=== PATIENT | male | born 1970 | race Caucasian/White ===

== ENCOUNTER 2020-12-11 03:26 | Day surgery (SDC) | payer SELFPAY ==
[2020-12-11] VITALS (9 sets, daily range): BP systolic 101–135; BP diastolic 55–93; PULSE 77–105; RESP 15–18; TEMP 36.6; O2SAT 95–100; BMI 29.0
--- NOTE | 2020-12-11 06:22 | ED_ITS ---
HPI - Nausea/Vomiting/Diarrhea General: Chief complaint: Nausea/Vomiting/Diarrhea Stated complaint: n/v/possibly vomiting blood Time Seen by Provider: 12/11/20 05:03 History of Present Illness: HPI Narrative: Mr. Jacinto is a 50-year-old gentleman without significant past medical history presents the emergency department due to nausea and vomiting with concern over hematemesis. Symptom onset was 3 to 4 days ago and gradual. He endorses a preceding number of months of burning epigastric pain. He has vomited numerous times and has dark red blood. He has mild associated generalized malaise. He does have a history of tobaccoism but no history of bleeding disorder or history of similar episodes in the past. Overall the course of symptoms has persisted. He denies abdominal trauma or other any other specific exacerbating, alleviating, or provoking f actors that he can identify. No history of abdominal surgeries. Review of Systems General: Reports: 10 or more systems reviewed and unremarkable except in HPI and below Narrative: CONSTITUTIONAL: denies fever, fatigue, weakness EYES - denies pain, denies loss of vision EARS - denies ear issues. NOSE - denies congestion or rhinorrhea. THROAT - denies sore throat or difficulty swallowing. CARDIOVASCULAR - denies chest pain and palpitations RESPIRATORY - denies shortness of breath and cough GASTROINTESTINAL - denies abdominal pain, see HPI. No dark tarry stools. GENITOURINARY - denies dysuria or urinary frequency MUSCULOSKELETAL- denies deformity or pain SKIN - denies rashes or new changed skin lesions NEUROLOGIC - denies focal weakness or sensory changes HEMATOLOGIC/LYMPHATIC - denies easy bruising or lymphadenopathy. [facility] ED PFSH: Social History (Updated 12/11/20 @ 07:35 by Matt Ng MD) Smoking and tobacco status: current every day smoker Physical Exam Narrative: EXAM NARRATIVE: GENERAL/CONSTITUTIONAL - well-appearing. No acute distress. Eyes - PERRL, no conjunctival injection ENMT - Atraumatic external nose and ears. Moist mucous membranes NECK - supple. trachea midline CARDIOVASCULAR - regular rate and rhythm. Peripheral pulses 2+ and equal RESPIRATORY -clear to auscultation bilaterally. No retractions or accessory muscle use. ABDOMEN/GI - Nontender/Nondistended. No tenderness to percussion or evidence of peritonitis MSK - Extremities without obvious deformity or tenderness to palpation SKIN - Warm, Dry NEURO - alert and appropriately oriented. strength and sensation intact. Moves all extremities equally. PSYCH - Appropriate mood and affect Course ED course: - Patient was seen and evaluated by me at bedside. Patient does have basin with small amounts of brown emesis - Patient placed on cardiac monitors, IV access obtained - Initial evaluation notable for no acute distress, nontoxic appearance. No significant abdominal pain. - Labs notable for no leukocytosis, normal hemoglobin. No significant abnormality contributing to his condition on chemistry panel - Imaging notable for ED read of chest x-ray without free air appreciated. CT read notable for stomach distention with fluid present. - Upon serial reexamination after treatment the patient was similar - Based on patient history, evaluation, labs, and imaging as interpreted the most likely cause of the patient's condition is unclear though given CT findings patient does require further evaluation at this time. - Gastroenterology physician on-call was consulted and patient to be taken for EGD with disposition pending results of EGD. - Patient left the emergency department with transport to GI Lab without deterioration or acute events. Vital Signs: Vital signs: Vital Signs Temperature 97.8 F 12/11/20 12:08 Pulse Rate 77 12/11/20 12:24 Respiratory Rate 18 12/11/20 12:24 Blood Pressure 122/77 12/11/20 12:24 Pulse Oximetry 100 12/11/20 12:24 MDM - Nausea/Vomiting/Diarrhea Medical Records: Attestation: I reviewed the patient's medical records. Lab Data: Attestation: I reviewed the patient's lab results. Labs: Lab Results 12/11/20 12/11/20 12/11/20 Range/Units 06:41 06:41 06:41 WBC 9.0 (4.0-10.0) 10^3/ uL RBC 4.56 (4.1-5.3) 10^6/u L Hgb 12.8 (11.7-16.6) g/dL Hct 40.0 L (42.0-52.0) % MCV 87.7 (80-94) fL MCH 28.1 (28.0-34.0) pg MCHC 32.0 (30.0-36.0) g/dL RDW 14.9 (12.1-15.1) % Plt Count 237 (130-400) 10^3/c mm MPV 11.5 H (7.4-10.4) fL Neut % (Auto) 69.4 % Lymph % (Auto) 22.3 % [place] % (Auto) 6.5 % Eos % (Auto) 1.0 % Baso % (Auto) 0.6 % Neut # (Auto) 6.23 (1.8-7.7) 10^3/u L Lymph # (Auto) 2.0 (0.8-4.8) 10^3/u L [place] # (Auto) 0.6 (0.2-0.9) 10^3/u L Eos # (Auto) 0.1 (0.0-0.8) 10^3/u L Baso # (Auto) 0.1 (0.0-0.1) 10^3/u L Nucleated RBC % (a uto) 0 % Nucleated RBCs # 0.0 /100WBC PT 12.80 (12.1-14.9) SECO NDS INR 0.93 (0.8-1.2) Sodium 139 (136-145) mmol/L Potassium 5.0 (3.5-5.1) mmol/L Chloride 103 (98-107) mmol/L Carbon Dioxide 27 (22-29) mmol/L Anion Gap 14.0 (5-19) BUN 29 H (6-20) mg/dL Creatinine 0.6 L (0.7-1.2) mg/dL GFR Calculation 142.6 H (90-130) mL/min Glucose 89 (65-115) mg/dL Calculated Osmolal ity 293 (285-295) mOsm/k g Calcium 8.5 (8.5-10.5) mg/dL Discharge Plan Discharge Patient Disposition: Admitted As Inpatient Condition: Stable Coding Level of Care Code ED Clearing Inspector for Michael Rodriguez
--- NOTE | 2020-12-11 06:26 | XR_ITS ---
WS: [id number] Portable AP upright chest, 12/11/2020 Clinical Data: hematemesis Comparison: None. Findings: No nodules, masses or effusions are seen. The heart is normal. The pulmonary vascularity is not increased. No pneumonia or pneumothorax is seen. XR/XR chest 1V portable [id number] Impression: Negative chest.
[2020-12-11] MEDS: lidocaine 2% viscous 15 ML, aluminum-mag hydrox-simethicon 30 ML, sucralfate oral liq 1 GM PO (06:39)
[2020-12-11] MEDS: lactated ringers 1,000 ML 999 ML IV (06:42)
[2020-12-11 07:13] LABS: Basophils # 0.1 10^3/uL (0.0-0.1); Basophils % 0.6 %; Eosinophils # 0.1 10^3/uL (0.0-0.8); Hemoglobin 12.8 g/dL (11.7-16.6); Lymphocytes % 22.3 %; Mean Corpuscular Hemoglobin 28.1 pg (28.0-34.0); Mean Corpuscular Volume 87.7 fL (80-94); Mean Platelet Volume 11.5 fL (7.4-10.4); Monocytes # 0.6 10^3/uL (0.2-0.9); Monocytes % 6.5 %; Neutrophils # 6.23 10^3/uL (1.8-7.7); Neutrophils % 69.4 %; Nucleated Red Blood Cells % 0 %; Platelet Count 237 10^3/cmm (130-400); Red Blood Count 4.56 10^6/uL (4.1-5.3); Red Cell Distribution Width 14.9 % (12.1-15.1)
[2020-12-11 07:17] LABS: INR 0.93 (0.8-1.2)
--- NOTE | 2020-12-11 07:19 | CT_ITS ---
WS: [id number] CT ABDOMEN AND PELVIS WITH CONTRAST HISTORY: hematemesis TECHNIQUE: Imaging performed of the abdomen and pelvis with IV contrast. Single phase imaging of the abdomen. Coronal and sagittal reformats are submitted. All CT scans at [facility] use at least one of these dose optimization techniques: automated exposure control; mA and/or kV adjustment per patient size (includes targeted exams where dose is matched to clinical indication); or iterativ e reconstruction. IV CONTRAST: Omnipaque 300; 95 mL IV. Oral contrast: No DLP: 1719.42 mGy.cm COMPARISON: None available. Lower thorax: Lung bases are clear. Heart is normal size. Small hiatal hernia. There is moderate dist ention of the distal esophagus with fluid which is probably secondary to reflux disease. Liver/biliary system: Normal size with no intrahepatic dilatation. Gallbladder: Mildly contracted gallbladder, no stones identified. Pancreas: Normal size pancreas and pancreatic duct. No adjacent inflammation. Spleen: Normal size spleen. No mass or infarct. Adrenal glands: Normal. Right kidney: No obstruction or solid mass. Scattered hypodensities are too small to characterize. Left kidney: No obstruction or solid mass. Low-attenuation cortical lesions are likely cysts. Some th jaren are too small to characterize. Nonobstructing 2 mm calcification central kidney. Aorta: Mild atherosclerosis with no aneurysm. Lymphadenopathy: None. Free fluid: None. GI tract: Marked distention of the stomach with fluid. Fluid extends into the distal esophagus from r eflux disease. Layering in the posterior fundus and also within the antrum extending into the proxima l duodenum are slightly lobulated soft tissue densities which are slightly tubular in configuration. These are slightly increased density as compared to fluid within the stomach. These may be from focal fold or blood within the stomach. The appendix is normal. Distal colonic diverticulosis without acut e diverticulitis. Abdominal wall: Unremarkable abdominal wall. No hernia. Pelvis: No free fluid or adenopathy within the pelvis. Urinary bladder is negative. Bones: Unremarkable. CT/CT abdomen pelvis w con* [id number] IMPRESSION: 1. Marked distention of the stomach with fluid. Tubular filling defects within the stomach and antrum extending into the duodenum. Consider gastritis and gas tric varices. This also may be clotted blood within the stomach as patient is d emonstrating hematemesis. Endoscopy may be necessary for further evaluation. 2. Normal appendix. 3. Contracted gallbladder. 4. Fluid filled distal esophagus from reflux.
[2020-12-11 07:25] LABS: Blood Urea Nitrogen 29 mg/dL (6-20); Calcium 8.5 mg/dL (8.5-10.5); Carbon Dioxide 27 mmol/L (22-29); Chloride 103 mmol/L (98-107); Glomerular Filtration Rate 142.6 mL/min (90-130); Glucose 89 mg/dL (65-115); Osmolality Calculated 293 mOsm/kg (285-295); Sodium 139 mmol/L (136-145)
[2020-12-11] MEDS: iohexol 300 mg/mL 100 mL Btl IV (07:43)
--- NOTE | 2020-12-11 09:47 | PC.PHAR ---
PT STATES HE TAKES CARE OF HIS OWN MEDICATIONS-PT STATES HE TAKES NO RX MEDICATIONS-NO MEDS PULL UP ON EXT MED HISTORY
--- NOTE | 2020-12-11 10:21 | P.ANESASSM_ITS ---
Pre-Anesthetic Assessment Pre-Anesthetic Assessment: Height/Weight: Height 1.85 m Weight 99.79 kg Temp Pulse Resp BP Pulse Ox 97.9 F 86 16 101/55 95 12/11/20 03:35 12/11/20 09:00 12/11/20 09:00 12/11/20 09:00 12/11/20 09:00 Proposed Procedure: Operation Date: 12/11/20 10:15 Proposed Procedures p EGD(Not Applicable) - John Coronado MD Was Beta Jeremy taken within 24 hours: N/A Was Clonidine taken within 24 hours: N/A Social: Social History: Tobacco and No alcohol Exam: Pre-Anes Outpt Exam: alert, oriented x 3 and regular rate & rhythm Airway: Submandibular: WNL Cervical ROM: WNL MP: 2 Dentition: Chipped Additional comments: Very poor dentition, missing most Pulmonary: Pulmonary: COPD GI: Comments: Hematemasis Anesthetic Plan: ASA status: 3 Anesthesia: MAC Risk of > 500 ml blood l oss (7ml/kg in children): No PFSH Anesthesia PFSH: Social History (Updated 12/11/20 @ 07:35 by Matt Ng MD) Smoking and tobacco status: current every day smoker Data Anesthesia CBC & Chem 7: 12/11/20 06:41 12/11/20 06:41 Other Labs: Laboratory Results - last 48 hr 12/11/20 12/11/20 12/11/20 06:41 06:41 06:41 WBC 9.0 RBC 4.56 Hgb 12.8 Hct 40.0 L MCV 87.7 MCH 28.1 MCHC 32.0 RDW 14.9 Plt Count 237 MPV 11.5 H Neut % (Auto) 69.4 Lymph % (Auto) 22.3 [place] % (Auto) 6.5 Eos % (Auto) 1.0 Baso % (Auto) 0.6 Neut # (Auto) 6.23 Lymph # (Auto) 2.0 [place] # (Auto) 0.6 Eos # (Auto) 0.1 Baso # (Auto) 0.1 Nucleated RBC % (auto) 0 Nucleated RBCs # 0.0 PT 12.80 INR 0.93 Sodium 139 Potassium 5.0 Chloride 103 Carbon Dioxide 27 Anion Gap 14.0 BUN 29 H Creatinine 0.6 L GFR Calculation 142.6 H Glucose 89 Calculated Osmolality 293 Calcium 8.5 Cardiac Studies: No Data to Display
[2020-12-11] MEDS: sodium chloride 0.9% 1,000 ML 30 ML IV (10:30)
--- NOTE | 2020-12-11 11:00 | PM.CONSULT ---
Providers/Reason For Consult Consulting Physician/Specialty*: Endoscopy Reason for Consult*: Hematemesis Requesting Physician: The emergency room Attending Physician: John Coronado MD History of Present Illness History of Present Illness Monster Jacinto is a 50 year old male who presented the emergency department after beginning to vomit last night. He soon thereafter noted bright red blood in his vomitus. He presented to the emergency department thus. He is not in any distress at this moment, and I do not believe he has vomited since he has been in the emergency department. His CT is somewhat telling for gastric pathology. His vital signs and hemoglobin are stable here. Of note he takes ibuprofen. He states he has been vomiting for the last year, but had not seen blood. He denies weight loss. He denies dysphagia. Review of Systems General: Reports: 10 or more systems reviewed and unremarkable except in HPI and below Meds/Allergies Home Medications and Allergies Home Medications Medication Instructions Recorded Confirmed Last Taken Type ibuprofen 600 mg PO Q4H PRN 12/11/20 12/11/20 Unknown History Allergies Allergy/AdvReac Type Severity Reaction Status Date / Time No Known Allergies Allergy Verified 12/11/20 09:47 Current Medications Current Medications Generic Name Dose Route Start Last Admin Trade Name Freq PRN Reason Stop Dose Admin Sodium Chloride 1,000 mls @ 30 mls/hr 12/11/20 10:30 12/11/20 10:30 Sodium Chloride 0.9% IV 12/12/20 10:29 30 mls/hr .Q24H ARELI Administration PFSH Acute PFSH: Social History (Updated 12/11/20 @ 07:35 by Matt Ng MD) Smoking and tobacco status: current every day smoker Vitals/I&O/Wt Last Vital Signs Temp 98 F 12/11/20 10:24 Pulse 80 12/11/20 10:24 Resp 18 12/11/20 10:24 BP 135/93 12/11/20 10:24 Pulse Ox 97 12/11/20 10:24 Weight last 48 hrs Weight 220 lb Physical Exam Narrative: EXAM NARRATIVE: He is not in any distress on exam. He is perhaps a bit tender in the epigastrium. Bowel sounds are normal and no organomegaly is noted. A&P Assessment and plan (1) Hematemesis of unknown cause: Status: Acute Additional A&P Information Plan to do a diagnostic EGD this morning. We will determine if he needs to be admitted or if he can be managed as an outpatient after said endoscopy. Coding Level of Care Code Acute Gaming Table Operator for Chg Fwd Diagnoses Hematemesis of unknown cause K92.0 Comment Please allow Ania Nieves to process this chart.
[2020-12-11] MEDS: EPINEPHrine 1 mg/mL INJ XX (11:56)
--- NOTE | 2020-12-11 11:57 | SUR.OPER ---
Addendum entered by Kristen Hoffman RN 12/11/20 12:00: Clip to lower esophageal ulcer per Dr. Coronado. Original Note: Epinephrine 0.3mg injected into esophageal mucosa per Dr. Coronado.
--- NOTE | 2020-12-11 14:41 | ANE.PACU2 ---
Inpatient post-anesthesia follow up: Airway intact: Yes Vital signs: Temperature 97.8 F Pulse Rate [Monito r] 100 Pulse Rate [Orthos tatic 105 Standing] Pulse Rate [Orthos tatic 92 Sitting] Pulse Rate [Orthos tatic Lying] 89 Pulse Rate 77 Respiratory Rate 18 Blood Pressure [Or thostatic 115/72 Standing] Blood Pressure [Or thostatic 127/85 Sitting] Blood Pressure [Or thostatic 125/79 Lying] Blood Pressure [Le ft Arm] 123/87 Blood Pressure 122/77 Pulse Oximetry 100 Oxygen Delivery Me thod Room Air Oxygen Flow Rate Fraction of Inspir ed Oxygen Hydration adequate: Yes Nausea and vomiting: No Pain level: 1 Mental status: Baseline
== END 2020-12-11 12:40 | disposition home or self-care (01) ==
LOC: ER 06:20 → GILAB 09:50
PROVIDERS: Emergency Provider Emergency Medicine; Visit Provider Internal Medicine
PROC: 0DJ08ZZ Inspection of Upper Intestinal Tract, Via Natural or Artificial Opening Endoscopic (ICD-10-PCS; CPT 43235; principal; 2020-12-11 10:15)
DX: K92.0 Hematemesis (principal); K22.10 Ulcer of esophagus without bleeding; F17.210 Nicotine dependence, cigarettes, uncomplicated; Z79.1 Long term (current) use of non-steroidal anti-inflammatories (NSAID)
CPT/HCPCS: 43236; 43255; 71045; 74177; 80048; 85025; 85610; 96360; 96361; J0171; J2704; J7030; Q9967